=== PATIENT | male | born 1990 | race Caucasian/White ===

== ENCOUNTER 2017-12-02 17:48 | Emergency (ER) | payer OTHER ==
[~2017-12-02] VITALS: Ht 193 cm; Wt 172.6 kg
[~2017-12-02 17:48] MED LIST: AMOX875 PO; BENZ100 PO; MEDR4PAK3 PO
[2017-12-02 17:57] VITALS: BP 146/75; PULSE 85; RESP 18; TEMP 97.9; O2SAT 100
[2017-12-02] MEDS ORDERED: SODIUM CHLOR 0.9% 1000 ML INJ 1,000 ML IV SCH (18:21)
[2017-12-02] MEDS ORDERED: SODIUM CHLORIDE 0.9% FLUSH 10 ML FLUSH IV FLUSH PRN (18:30)
[2017-12-02] MEDS ORDERED: KETOROLAC TROMETHAMINE 30 MG/ML (IVP) VIAL IV PUSH ONE (18:30)
[2017-12-02] MEDS ORDERED: CYCLOBENZAPRINE HCL 10 MG TAB PO ONE (18:30)
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
[2017-12-02 18:39] VITALS: RESP 18; O2SAT 99
[2017-12-02 18:45] LABS: AUTOMATED NEUTROPHIL # 4.4 TH/MM3 (1.8-7.7); BASOPHIL % 0.5 % (0.0-2.0); EOSINOPHIL # 0.2 TH/MM3 (0-0.4); HEMATOCRIT 38.5 % (39.0-51.0); HEMOGLOBIN 13.1 GM/DL (13.0-17.0); LYMPH % 26.3 % (9.0-44.0); LYMPHOCYTE # 1.8 TH/MM3 (1.0-4.8); MEAN CORPUSCULAR HEMOGLOBIN 29.6 PG (27.0-34.0); MEAN CORPUSCULAR HGB CONC 34.1 % (32.0-36.0); MEAN PLATELET VOLUME 7.9 FL (7.0-11.0); MONO % 9.1 % (0.0-8.0); MONOCYTE # 0.6 TH/MM3 (0-0.9); NEUT % 61.1 % (16.0-70.0); PLATELET COUNT 263 TH/MM3 (150-450); RED BLOOD COUNT 4.43 MIL/MM3 (4.50-5.90); RED CELL DISTRIBUTION WIDTH 13.1 % (11.6-17.2)
[2017-12-02 19:00] LABS: CHLORIDE 104 MEQ/L (98-107); SODIUM (NA) 138 MEQ/L (136-145)
[2017-12-02 19:03] LABS: CALCIUM 8.7 MG/DL (8.5-10.1)
[2017-12-02 19:04] LABS: ALBUMIN 3.9 GM/DL (3.4-5.0); BLOOD UREA NITROGEN 12 MG/DL (7-18); GLUCOSE,RANDOM 89 MG/DL (74-106)
[2017-12-02 19:07] LABS: ALT (GPT) 70 U/L (12-78); AST (GOT) 40 U/L (15-37); CREATININE 0.77 MG/DL (0.60-1.30); GLOMERULAR FILTRATION RATE 121 ML/MIN (>89)
[2017-12-02 19:08] LABS: TOTAL BILIRUBIN ADULT 0.6 MG/DL (0.2-1.0); TOTAL PROTEIN 7.6 GM/DL (6.4-8.2)
[2017-12-02 19:10] LABS: ALKALINE PHOSPHATASE 87 U/L (45-117)
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
[2017-12-02 20:45] VITALS: BP 140/85; PULSE 85; RESP 16; TEMP 98.2; O2SAT 100
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
[2017-12-02] MEDS ORDERED: CYCL10TA PO (21:39)
[2017-12-02] MEDS ORDERED: NAPR500T2 PO (21:39)
[2017-12-02 22:02] VITALS: BP 139/79; TEMP 98.4
== END 2017-12-02 22:05 | disposition home or self-care (01) ==
LOC: PHED 17:48
DX: S16.1XXA Strain of muscle, fascia and tendon at neck level, initial encounter (principal); S39.012A Strain of muscle, fascia and tendon of lower back, initial encounter; V49.49XA Driver injured in collision with other motor vehicles in traffic accident, initial encounter
CPT/HCPCS: 70450; 71045; 72125; 72128; 72131; 80053; 85025; 96361; 96374; 99285; J1885; J7030